=== PATIENT | male | born 1990 | race African-American/Black ===

== ENCOUNTER 2019-07-10 17:28 | Emergency (ER) | payer SELFPAY ==
[~2019-07-10] VITALS: Ht 182.9 cm; Wt 75.0 kg
[2019-07-10] MEDS ORDERED: HYDROCODONE/ACETAMINOPHEN 5/325MG TABLET PO ONE (19:30)
[2019-07-10] MEDS ORDERED: IBUPROFEN 600MG TABLET PO ONE (19:30)
[2019-07-10 22:05] VITALS: BP 141/83
== END 2019-07-10 22:10 | disposition home or self-care (01) ==
LOC: ER 17:28
DX: S82.201A Unspecified fracture of shaft of right tibia, initial encounter for closed fracture (principal); S82.401A Unspecified fracture of shaft of right fibula, initial encounter for closed fracture; X58.XXXA Exposure to other specified factors, initial encounter; Y93.89 Activity, other specified; Y92.89 Other specified places as the place of occurrence of the external cause; Y99.8 Other external cause status
CPT/HCPCS: 73590; 99283; Z7610